=== PATIENT | female | born 1975 | race Asian ===

== ENCOUNTER 2022-07-01 13:48 | Observation (INO) | payer OTHER ==
[~2022-07-01] VITALS: Ht 167.6 cm; Wt 89.1 kg
[2022-07-01] VITALS (9 sets, daily range): BP systolic 96–123; BP diastolic 51–85; TEMP 97.5–99.8; Ht 167.6 cm; Wt 89.1 kg
[2022-07-01 15:00] LABS: PLATELET COUNT 318 K/uL (152-353)
[2022-07-01 15:08] LABS: POTASSIUM 3.6 mmol/L (3.6-5.2)
[2022-07-01] MEDS ORDERED: AMLODIPINE BESYLATE PO (18:52)
[2022-07-01] MEDS ORDERED: LIPITOR80 MG PO (18:53)
[2022-07-01] MEDS ORDERED: ASA LOW DOSE81 MG PO (18:58)
[2022-07-02 03:53] VITALS: BP 117/74; TEMP 99.3
[2022-07-02 05:38] LABS: POTASSIUM 3.7 mmol/L (3.6-5.2)
[2022-07-02 05:43] LABS: PLATELET COUNT 292 K/uL (152-353)
[2022-07-02] MEDS ORDERED: PROVERA10 MG PO (07:26)
[2022-07-02 08:00] VITALS: BP 110/68; TEMP 99.4
[2022-07-02 08:42] VITALS: BP 127/88; TEMP 98.3
== END 2022-07-02 09:25 | disposition home or self-care (01) ==
LOC: ED 13:48 → MED/SURG 16:25
PROVIDERS: ADMIT Emergency Medicine; ATTEND Internal Medicine
PROC: 30233N1 Transfusion of Nonautologous Red Blood Cells into Peripheral Vein, Percutaneous Approach (ICD-10-PCS; principal; 2022-07-01)
DX: D62 Acute posthemorrhagic anemia (principal); N93.8 Other specified abnormal uterine and vaginal bleeding; I10 Essential (primary) hypertension; I69.351 Hemiplegia and hemiparesis following cerebral infarction affecting right dominant side; R42 Dizziness and giddiness
CPT/HCPCS: 36415; 36430; 80053; 81000; 82607; 82728; 82746; 83540; 83550; 83690; 84466; 84484; 85008; 85027; 86850; 86900; 86901; 86922; 87635; 93005; 96360; 96374; 99220; 99284; G0378; J2405; P9016; U0003